=== PATIENT | male | born 1995 | race African-American/Black ===

== ENCOUNTER 2018-05-12 17:54 | Emergency (ER) | payer OTHER | END 2018-05-12 18:51 | disposition home or self-care (01) | LOC: M ED 17:54 | DX: K64.4 Residual hemorrhoidal skin tags (principal) | CPT/HCPCS: 99282 ==

== ENCOUNTER 2019-06-23 09:20 | Emergency (ER) | payer OTHER ==
[~2019-06-23 09:20] MED LIST: ANUS2.5C2 TOP; MIRA3350 PO
[2019-06-23 13:54] VITALS: BP 128/73
== END 2019-06-23 13:57 | disposition home or self-care (01) ==
LOC: M ED 09:20
DX: F43.20 Adjustment disorder, unspecified (principal); F10.229 Alcohol dependence with intoxication, unspecified; F17.210 Nicotine dependence, cigarettes, uncomplicated